=== PATIENT | male | born 1985 | race Caucasian/White ===

== ENCOUNTER 2018-03-30 08:09 | Day surgery (SDC) | payer OTHER ==
[2018-03-30] MEDS ORDERED: BUPIVACA 0.5%/EPI 0.0005%/PF 30 ML VIAL ONE (08:20)
[2018-03-30] MEDS: Ringers Lactate 1,000 ML IV ONE ×2 (08:53→11:03)
[2018-03-30] MEDS ORDERED: PROPOFOL 200 MG/20 ML VIAL IV ONE (10:30)
[2018-03-30] MEDS ORDERED: MIDAZOLAM HCL 2 MG/2 ML INJ ONE (10:30)
[2018-03-30] MEDS ORDERED: FENTANYL CITR 100 MCG/2 ML ONE (10:30)
[2018-03-30] MEDS ORDERED: DEXAMETHASONE 10 MG/ML VIAL ONE (10:31)
[2018-03-30] MEDS ORDERED: ROCURONIUM 50 MG/5 ML VIAL IV ONE (10:31)
[2018-03-30] MEDS ORDERED: LIDOCAINE 2% MPF 5 ML VIAL ONE (10:31)
[2018-03-30] MEDS ORDERED: EPINEPHRINE/PF 1 MG/ML AMP ONE (10:41)
[2018-03-30] MEDS ORDERED: GLYCOPYRROLATE 0.2 MG/ML SYR ONE (11:51)
[2018-03-30] MEDS ORDERED: NEOSTIGMINE 1 MG/ML -5 ML SYRINGE ONE (11:57)
[2018-03-30] MEDS ORDERED: MORPHINE 4 MG/ML SYR ONE (12:10)
--- NOTE | 2018-03-30 12:58 | P.BOP ---
Preoperative diagnosis: EDITA, tonsillary hypertrophy Postoperative diagnosis: same Primary procedure: EUA. 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
--- NOTE | 2018-03-30 23:15 | OP ---
Date of Procedure: 03/30/2018 Surgeon: Vivian Morrow MD Preoperative Diagnoses: Obstructive sleep apnea, tonsillar hypertrophy. Postoperative Diagnoses: Obstructive sleep apnea, tonsillar hypertrophy. Procedures: Planned tonsillectomy - aborted; exam under anesthesia. Indication For Surgery: Qamar is a 33-year-old with confirmed obstructive sleep apnea and very large tonsils. The risks, benefits, and alternatives to surgery were discussed with the patient who agreed to proceed. Description Of Procedure: The patient was brought to the operating room. He was placed under general anesthesia via oral endotracheal tube. It was noted that he was difficult intubation with insufficient exposure with a standard laryngoscope. He was successfully intubated after multiple attempts with a GlideScope. After obtaining adequate anesthesia, the head of bed was turned, a shoulder roll was placed, and a head drape was applied. The McIvor mouth gag was placed in order to expose the oropharynx. Exposure was very limited, even under anesthesia and with paralytic. The patient's maximal incisal opening was approximately 3 cm. His tongue was very large and the oropharynx was quite narrow in both fxhsrz-ac-klslxzh as well as pmyqsmst-ol-uhgkdaygg aspects. Due to the size of the tongue and limited mouth opening, exposure & visualization for access to the inferior pole of the tonsil was very limited. Due to these findings as well as the patient's recent acceptance and very good compliance with CPAP treatment, careful consideration was made regarding the risks and benefits of surgery presuming successful tonsillectomy without complications. The patient is still very likely to require CPAP therapy due to the size of the tongue, the narrowness of the oropharynx, neck circumference of 18 inches, and morbid obesity with weight greater than 300 pounds. In considering a worse case scenario such as post-tonsillectomy hemorrhage with difficult intubation, I felt overall, in light of intraoperative findings, that the risks of the procedure outweighed the benefit and opted to abort the procedure. Thus, no tonsillectomy incisions were made. The mouth gag was then removed and the patient was returned to care of anesthesia for awakening, extubation in the operating room, which proceeded without difficulty. There is no intention in the short-term to return to the operating room. Reconsideration may be made if the patient has significant weight loss with approaching a near-normal body mass index, but careful consideration would need to be made in light of the size of the patient's tongue and narrowness of the oropharynx overall. ASHLEE/BORIS Voice ID: [id number] Report ID: [id number] MTDD
== END 2018-03-30 13:35 | disposition home or self-care (01) ==
LOC: OR 08:09
PROVIDERS: ATTEND Otolaryngology
PROC: 0CTPXZZ Resection of Tonsils, External Approach (ICD-10-PCS; principal; 2018-03-30 10:30)
DX: J35.1 Hypertrophy of tonsils (principal); G47.33 Obstructive sleep apnea (adult) (pediatric); Z53.09 Procedure and treatment not carried out because of other contraindication; R06.83 Snoring; I10 Essential (primary) hypertension; F17.200 Nicotine dependence, unspecified, uncomplicated; Z83.3 Family history of diabetes mellitus; Z82.49 Family history of ischemic heart disease and other diseases of the circulatory system
CPT/HCPCS: J0171; J1100; J2250; J2710; J3010

== ENCOUNTER 2021-02-22 13:56 | Emergency (ER) | payer SELFPAY ==
[2021-02-22 15:21] LABS: Absolute Lymphocytes (CBC) 2.2 K/uL (0.7-4.9); Basophils % 0.9 % (0-1.3); Hematocrit 46.4 % (39.6-49.0); RBC Red Blood Cell Count 5.04 M/uL (4.33-5.43)
[2021-02-22 15:42] LABS: BUN Blood Urea Nitrogen 20 mg/dL (7-18); Bicarbonate 28 mmol/L (21-32); Glucose Level 179 mg/dL (74-106); Sodium Level 140 mmol/L (136-145); Troponin (Emerg Dept Use Only) < 0.02 ng/mL (0.0-0.045)
[2021-02-22 15:43] LABS: Potassium 4.1 mmol/L (3.5-5.1)
--- NOTE | 2021-02-22 17:33 | ER ---
Nurse's Notes [facility] Name: Qamar Weiner Age: 35 yrs Sex: Male : 1985 Arrival Date: 02/22/2021 Time: 13:58 Bed 11 Private MD: Diagnosis: Chest pain, unspecified;Hypertension Presentation: 02/22 14:41 Chief complaint: Patient states: Pt stated, " I was sitting eating lunch and all the kg sudden I had chest pain and cold sweats and felt like my heart was fluttering. I went in and took my B/P it was 168/112 and then tried again later it was 160/111." Pt stated I'm known to have high BP but I dont have insurance to see a DR. Coronavirus screen: Client denies travel out of the [place] in the last 14 days. At this time, unable to obtain information related to travel outside the [place] At this time, the client does not indicate any symptoms associated with coronavirus-19. Ebola Screen: Patient negative for fever greater than or equal to 101.5 degrees Fahrenheit, and additional compatible Ebola Virus Disease symptoms Patient denies exposure to infectious person. Patient denies travel to an Ebola-affected area in the 21 days before illness onset. Initial Sepsis Screen: Does the patient meet any 2 criteria? No. Patient's initial sepsis screen is negative. Does the patient have a suspected source of infection? No. Patient's initial sepsis screen is negative. Risk Assessment: Do you want to hurt yourself or someone else? Patient reports no desire to harm self or others. Onset of symptoms was February 22, 2021 at 12:30. 14:41 Method Of Arrival: Ambulatory kg 14:41 Acuity: STACY 3 kg Triage Assessment: 14:44 General: Appears in no apparent distress. Behavior is calm, cooperative, appropriate kg for age, quiet. Pain: Denies pain. Cardiovascular: Reports lightheadedness. Historical: - Allergies: 14:44 No Known Allergies; kg - Home Meds: 14:44 None [Active]; kg - PMHx: 14:44 Hypertensive disorder; Heart murmur; kg - PSHx: 14:44 None; kg - Immunization history:: Adult Immunizations not up to date, Client reports having NOT received the Covid vaccine. - Social history:: Smoking status: Patient reports the use of cigarette tobacco products, smokes one-half pack cigarettes per day, Patient uses alcohol, occasionally. - Family history:: not pertinent. - Hospitalizations: : No recent hospitalization is reported. Screenin:47 Abuse screen: Denies threats or abuse. Denies injuries from another. Nutritional kg screening: No deficits noted. Tuberculosis screening: No symptoms or risk factors identified. Fall Risk None identified. Assessment: 16:25 General: Appears in no apparent distress. comfortable, Behavior is calm, cooperative. ss Pain: Denies pain. Neuro: Level of Consciousness is awake, alert, obeys commands, Oriented to person, place, time, situation. Respiratory: Airway is patent Respiratory effort is even, unlabored, Respiratory pattern is regular, symmetrical. GI: No signs and/or symptoms were reported involving the gastrointestinal system. Patient currently denies diarrhea, nausea, vomiting. EENT: Oral mucosa is moist. Derm: Skin is intact, is healthy with good turgor, Skin is dry, Skin is pink, warm \\T\\ dry. normal. 16:34 Reassessment: awaiting repeat troponin results. ss Vital Signs: 14:44 BP 152 / 99; Pulse 112; Resp 20; Temp 98.9(O); Pulse Ox 98% on R/A; Weight 154.22 kg kg (R); Height 6 ft. 0 in. (182.88 cm) (R); Pain 0/10; 16:35 BP 152 / 103; Pulse 102; Resp 18; Temp 98.4(O); Pulse Ox 97% on R/A; mh5 14:44 Body Mass Index 46.11 (154.22 kg, 182.88 cm) kg ED Course: 13:58 Patient arrived in ED. mr 14:44 Triage completed. kg 14:44 Arm band placed on. kg 14:47 Patient has correct armband on for positive identification. kg 14:50 Inserted saline lock: 20 gauge in left antecubital area, using aseptic technique. kg Patient maintains SpO2 saturation greater than 95% on room air. 14:53 Joseph Cohen MD is Attending Physician. rn 15:18 XRAY Chest Pa And Lat (2 Views) In Process Unspecified. EDMS 16:25 Afia Andrew, KAL is Primary Nurse. 16:31 Troponin (Emerg Dept Use Only) Sent. mh5 16:31 Troponin (emerg Dept Use Only) Sent. 5 16:31 Repeat lab(s) drawn. by az, sent to lab. 5 16:37 Basic Metabolic Panel Sent. 5 16:37 CBC with Diff Sent. [facility] 17:33 Annetta Simpson MD is Referral Physician. rn Administered Medications: No medications were administered Outcome: 17:33 Discharge ordered by MD. rn 17:54 Patient left the ED. Signatures: Dispatcher [employer] EDELWA Vita Cruz Roman, MD MD rn Smirch, Shelby, RN RN ss Baxter, Heather, RN RN Susan Hannon [facility] Isela Whipple RN RN kg
--- NOTE | 2021-02-22 17:33 | EDPHYS ---
Physician Documentation [facility] Name: Qamar Weiner Age: 35 yrs Sex: Male : 1985 Arrival Date: 02/22/2021 Time: 13:58 Bed 11 Private MD: ED Physician Joseph Cohen HPI: 02/22 15:01 This 35 yrs old Male presents to ER via Ambulatory with complaints of Chest rn Pain, High Blood Pressure. 15:01 The patient or guardian reports chest pain that is located primarily in the anterior rn chest wall, left. The pain does not radiate. Associated signs and symptoms: Pertinent positives: None. Pertinent negatives: abdominal pain, cough, headache, lower extremity swelling, shortness of breath, syncope, vomiting. The chest pain is described as pulsing. Duration: The patient or guardian reports a single episode, that lasted 30 second(s). Modifying factors: The symptoms are alleviated by nothing. the symptoms are aggravated by nothing. Severity of pain: At its worst the pain was mild in the emergency department the pain has improved. The patient has not experienced similar symptoms in the past. The patient has not recently seen a physician. Patient reports was eating lunch, felt 3 pulses in his left chest, denies pain, reports lasted a few seconds only. Went back to work and felt a little off, so checked blood pressure, which was elevated 160s over 110s. Currently asymptomatic. Patient reports mother had DE in her 30s. Also reports is an active smoker.. Historical: - Allergies: 14:44 No Known Allergies; kg - Home Meds: 14:44 None [Active]; kg - PMHx: 14:44 Hypertensive disorder; Heart murmur; kg - PSHx: 14:44 None; kg - Immunization history:: Adult Immunizations not up to date, Client reports having NOT received the Covid vaccine. - Social history:: Smoking status: Patient reports the use of cigarette tobacco products, smokes one-half pack cigarettes per day, Patient uses alcohol, occasionally. - Family history:: not pertinent. - Hospitalizations: : No recent hospitalization is reported. ROS: 15:01 Constitutional: Negative for fever, chills, and weight loss, Eyes: Negative for injury, rn pain, redness, and discharge, Neck: Negative for injury, pain, and swelling, Cardiovascular: Negative for edema Respiratory: Negative for shortness of breath, cough, wheezing, and pleuritic chest pain, Abdomen/GI: Negative for abdominal pain, nausea, vomiting, diarrhea, and constipation, Back: Negative for injury and pain, : Negative for injury, bleeding, discharge, and swelling, MS/Extremity: Negative for injury and deformity, Skin: Negative for injury, rash, and discoloration, Neuro: Negative for headache, weakness, numbness, tingling, and seizure. 15:01 All other systems are negative. Exam: 15:01 Constitutional: Overweight male, no acute distress Head/Face: Normocephalic, rn atraumatic. Eyes: Periorbital areas with no swelling, redness, or edema. Cardiovascular: Tachycardic, regular rhythm. No pulse deficits. Respiratory: No increased work of breathing, no retractions or nasal flaring. Abdomen/GI: Soft, non-tender Skin: Warm, dry MS/ Extremity: Pulses equal, no cyanosis. Neuro: Awake and alert, GCS 15 15:12 ECG was reviewed by the Attending Physician. rn Vital Signs: 14:44 BP 152 / 99; Pulse 112; Resp 20; Temp 98.9(O); Pulse Ox 98% on R/A; Weight 154.22 kg kg (R); Height 6 ft. 0 in. (182.88 cm) (R); Pain 0/10; 16:35 BP 152 / 103; Pulse 102; Resp 18; Temp 98.4(O); Pulse Ox 97% on R/A; mh5 14:44 Body Mass Index 46.11 (154.22 kg, 182.88 cm) kg MDM: 14:53 Patient medically screened. rn 16:11 Differential diagnosis: acute myocardial infarction, acute pericarditis, coronary rn artery disease chest wall pain, costochondritis, gastroesophageal reflux disease (GERD), pleurisy, pneumothorax, pulmonary embolus, stable angina. Data reviewed: vital signs, nurses notes, lab test result(s), EKG, radiologic studies, plain films, and as a result, I will discharge patient. Data interpreted: Pulse oximetry: on room air is 98 %. Interpretation: normal. 16:21 ED course: Discussed case with patient, troponin negative, D-dimer negative, chest rn x-ray negative, no ischemia on ECG. Patient does have some risk factors, so discussed admission versus repeat troponin and outpatient follow-up. Patient requests he not be admitted and wants repeat troponin. Repeat troponin being drawn now. If normal will DC home.. 17:31 Test interpretation: by ED physician or midlevel provider: ECG, plain radiologic rn studies, Chest x-ray without acute findings, negative for pneumothorax. Counseling: I had a detailed discussion with the patient and/or guardian regarding: the historical points, exam findings, and any diagnostic results supporting the discharge/admit diagnosis, lab results, radiology results, the need for outpatient follow up, to return to the emergency department if symptoms worsen or persist or if there are any questions or concerns that arise at home. Counseling: I had a detailed discussion with the patient and/or guardian regarding: smoking cessation. Response to treatment: the patient's symptoms have resolved after treatment, the patient's condition has returned to base line, the patient is now symptom free, and as a result, I will discharge patient. Special discussion: Based on the patient's history, exam, and Dx evaluation, there is no indication for emergent intervention or inpatient Tx. It is understood by the patient/guardian that if the Sx's persist or worsen they need to return immediately for re-evaluation. I discussed with the patient/guardian in detail that at this point there is no indication for admission to the hospital. It is understood, however, that if the symptoms persist or worsen the patient needs to return immediately for re-evaluation. ED course: Repeat troponin negative. Patient still wants to go home as opposed to admission. Will refill his hypertension medication as he has been out of it, which could have precipitated today's symptoms given elevated blood pressure. Chest pain only lasted seconds and felt more like pulses per patient and not true pain. Will DC home per his wishes with cardiology follow-up and return precautions.. 02/22 14:59 Order name: CBC with Diff rn 02/22 14:59 Order name: Basic Metabolic Panel rn 02/22 14:59 Order name: Troponin (emerg Dept Use Only); Complete Time: 16:02 rn 02/22 14:59 Order name: D-Dimer; Complete Time: 16:02 rn 02/22 15:00 Order name: CBC with Automated Diff; Complete Time: 16:02 EDIL 02/22 15:00 Order name: Basic Metabolic Panel; Complete Time: 16:02 EDIL 02/22 14:59 Order name: IV Start; Complete Time: 16:34 rn 02/22 14:59 Order name: EKG; Complete Time: 15:00 rn 02/22 14:59 Order name: EKG - Nurse/Tech; Complete Time: 16:34 rn 02/22 14:59 Order name: XRAY Chest Pa And Lat (2 Views) rn 02/22 14:59 Order name: O2 Sat Monitoring; Complete Time: 16:34 rn 02/22 14:59 Order name: Cardiac monitoring; Complete Time: 17:37 rn 02/22 16:21 Order name: Troponin (emerg Dept Use Only) rn 02/22 16:21 Order name: Troponin (Emerg Dept Use Only); Complete Time: 17:31 EDMS EC:12 Rate is 112 beats/min. Rhythm is regular. Left axis deviation noted. QRS is positive in rn lead I and negative in lead aVF. VA interval is normal. QRS interval is normal. QT interval is normal. No Q waves. T waves are Normal. No ST changes noted. Clinical impression: Sinus tachycardia. Interpreted by me. Reviewed by me. 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
[2021-02-22 18:14] VITALS: BP 152/103; TEMP 98.4; O2SAT 97
--- NOTE | 2021-02-23 07:38 | EKG ---
Test Date: 2021-02-22 Test Time: 14:50:58 Copier Repair Technician: ASHLYN MEASUREMENT RESULTS: Intervals: Rate: 112 AZ: 150 QRSD: 100 QT: 342 QTc: 466 [place]: P: 43 AZ: 150 QRS: -76 T: 89 INTERPRETIVE STATEMENTS: Sinus tachycardia Incomplete right bundle branch block Left anterior fascicular block Left ventricular hypertrophy with repolarization abnormality Abnormal ECG No previous ECG available for comparison Electronically Signed On 02-23-21 07:36:22 CDT by Gino Domínguez
--- NOTE | 2021-02-23 09:46 | RAD REPORT ---
EXAM DESCRIPTION: RAD - Chest Pa And Lat (2 Views) - 02/22/2021 10:38 pm CLINICAL HISTORY: CHEST PAIN Prolonged technical malfunction delayed the final written report. COMPARISON: None TECHNIQUE: Frontal and lateral views of the chest were obtained. FINDINGS: The lungs are clear. Heart size is normal and central vasculature is within normal limit s. No pleural effusion or pneumothorax seen. No acute bony finding noted. No aortic abnormality. IMPRESSION: No acute cardiopulmonary process.
== END 2021-02-22 17:54 | disposition home or self-care (01) ==
LOC: ER 13:56
DX: I10 Essential (primary) hypertension (principal); F17.210 Nicotine dependence, cigarettes, uncomplicated
CPT/HCPCS: 36415; 71046; 80048; 84484; 85025; 85379; 93005; 99284

== ENCOUNTER 2021-04-06 04:38 | Inpatient (IN) | payer SELFPAY ==
[2021-04-06 05:20] LABS: Absolute Lymphocytes (CBC) 2.6 K/uL (0.7-4.9); Lymphocytes % 28.6 % (15.3-44.8); MPV 7.3 fL (7.6-11.3); RBC Red Blood Cell Count 4.83 M/uL (4.33-5.43)
[2021-04-06 05:26] LABS: Protime INR 0.97
[2021-04-06 05:40] LABS: ALT/SGPT 62 U/L (12-78); AST/SGOT 29 U/L (15-37); Albumin 3.7 g/dL (3.4-5.0); Alkaline Phosphatase 79 U/L (45-117); BUN Blood Urea Nitrogen 19 mg/dL (7-18); Bicarbonate 27 mmol/L (21-32); Bilirubin Direct 0.1 mg/dL (0-0.2); Bilirubin Total 0.4 mg/dL (0.2-1.0); Glucose Level 133 mg/dL (74-106); Magnesium 2.1 mg/dL (1.8-2.4); NT PRO-BNP 14 pg/mL (<125); Potassium 3.9 mmol/L (3.5-5.1); Protein, Total 7.3 g/dL (6.4-8.2); Sodium Level 139 mmol/L (136-145); Troponin (Emerg Dept Use Only) < 0.02 ng/mL (0.0-0.045)
--- NOTE | 2021-04-06 06:08 | ER ---
Nurse's Notes [facility] Name: Qamar Weiner Age: 36 yrs Sex: Male : 1985 Arrival Date: 04/06/2021 Time: 04:40 Bed 24 Private MD: Diagnosis: Chest pain, unspecified;Hyperlipidemia, unspecified;Essential (primary) hypertension;Obesity, unspecified Presentation: 04/06 04:57 Chief complaint: Patient states: Pt states he was woken with sharp mid-sternal CP non wg radiating at 0200 this AM. Pt states he also has a headache in the back of head. Pt states he has a hx of HTN and is taking Lisinopril. Pt states he has had chest discomfort for the past 2-3 days but thought it was indigestion. The pain this morning was much worse. Pt denies SOB at rest but states slightly SOB on exertion. Pt denies Abd pain, N/V/D. Coronavirus screen: Vaccine status: Patient reports being unvaccinated. Client denies travel out of the [place] in the last 14 days. At this time, the client does not indicate any symptoms associated with coronavirus-19. Ebola Screen: Patient negative for fever greater than or equal to 101.5 degrees Fahrenheit, and additional compatible Ebola Virus Disease symptoms Patient denies exposure to infectious person. Patient denies travel to an Ebola-affected area in the 21 days before illness onset. No symptoms or risks identified at this time. Initial Sepsis Screen: Does the patient meet any 2 criteria? No. Patient's initial sepsis screen is negative. Does the patient have a suspected source of infection? No. Patient's initial sepsis screen is negative. Risk Assessment: Do you want to hurt yourself or someone else? Patient reports no desire to harm self or others. Onset of symptoms was April 06, 2021 at 02:00. 04:57 Method Of Arrival: Ambulatory wg 04:57 Acuity: STACY 3 wg Triage Assessment: 05:01 General: Appears uncomfortable, obese, well groomed, Behavior is calm, cooperative, wg appropriate for age. Pain: Complains of pain in Back of head, Mid Sternal Pain does not radiate. Pain currently is 10 out of 10 on a pain scale. Quality of pain is described as sharp. Cardiovascular: Reports chest pain, Denies diaphoresis, lightheadedness, nausea, palpitations, syncope, vomiting, Rhythm is sinus rhythm. Historical: - Allergies: 05:01 No Known Allergies; - Home Meds: 05:01 Lisinopril Oral [Active]; - PMHx: 05:01 Hypertensive disorder; wg - Immunization history:: Adult Immunizations up to date. - Social history:: Smoking status: Patient/guardian denies using tobacco. - Family history:: pertinent for heart disease, hypertension. Screenin:01 Abuse screen: Denies threats or abuse. Denies injuries from another. Nutritional sj1 screening: No deficits noted. Tuberculosis screening: No symptoms or risk factors identified. Fall Risk None identified. Assessment: 05:01 General: Appears in no apparent distress. Behavior is calm, cooperative, appropriate sj1 for age. Pain: Complains of pain in left chest Pain does not radiate. Pain currently is 8 out of 10 on a pain scale. Quality of pain is described as squeezing, Pain began 2 hours ago. Is continuous, Alleviated by nothing. Neuro: Reports dizziness. Cardiovascular: Reports chest pain, lightheadedness. Respiratory: Reports shortness of breath when CP worsens. GI: No deficits noted. : No deficits noted. EENT: No deficits noted. Derm: No deficits noted. Musculoskeletal: No deficits noted. Vital Signs: 04:57 BP 143 / 84; Pulse 90; Resp 17; Temp 97.6; Pulse Ox 98% on R/A; Weight 154.22 kg; wg Height 6 ft. 0 in. (182.88 cm); Pain 10/10; 05:00 BP 135 / 81; Pulse 91; Resp 20; Pulse Ox 98% on R/A; wr 06:00 BP 142 / 88; Pulse 84; Resp 20; Pulse Ox 98% on R/A; wr 07:00 BP 141 / 95; Pulse 77; Resp 20; Pulse Ox 98% ; es2 08:00 BP 123 / 63; Pulse 73; Resp 21; Temp 98.6(O); Pulse Ox 98% on R/A; es2 09:00 BP 133 / 61; Pulse 63; Resp 23; Pulse Ox 98% on R/A; es2 04:57 Body Mass Index 46.11 (154.22 kg, 182.88 cm) Vitals: 05:01 Cardiac Rhythm Assessment Regular Sinus rhythm. sj1 Perez Coma Score: 05:01 Eye Response: spontaneous(4). Verbal Response: oriented(5). Motor Response: obeys sj1 commands(6). Total: 15. ED Course: 04:40 Patient arrived in ED. 05:01 Triage completed. wg 05:01 XRAY Chest (1 view) Sent. sj1 05:01 No provider procedures requiring assistance completed. Inserted saline lock: 18 gauge sj1 in right antecubital area, using aseptic technique. Blood collected. Patient maintains SpO2 saturation greater than 95% on room air. 05:01 Arm band placed on right wrist. EKG completed in triage. Results shown to MD. wg 05:01 Patient has correct armband on for positive identification. Bed in low position. Call sj1 light in reach. Side rails up X 1. bus driver/monitor on. Pulse ox on. NIBP on. Door closed. Noise minimized. 05:05 XRAY Chest (1 view) In Process Unspecified. EDMS 05:12 Guanako Alvarado MD is Attending Physician. krysta 05:51 Megan Nunez is Primary Nurse. wr 06:06 Lilia Agosto MD is Hospitalizing Provider. krysta 06:18 CT Head Brain wo Cont In Process Unspecified. EDMS 08:32 Primary Nurse role handed off by Megan Nunez es2 08:32 Nubia Nogueira, KAL is Primary Nurse. es2 09:11 Troponin I Sent. es2 09:11 Lipid Profile Sent. es2 09:11 Lipid Profile Sent. es2 Administered Medications: 05:55 Drug: NS 0.9% 1000 ml Route: IV; Rate: 1 bolus; Site: right antecubital; wr 07:09 Follow up: Response: No adverse reaction; IV Status: Completed infusion es2 05:55 Drug: Tylenol 1000 mg Route: PO; wr 07:09 Follow up: Response: No adverse reaction es2 05:55 Drug: Ketorolac 30 mg Route: IVP; Site: right antecubital; wr 07:08 Follow up: Response: No adverse reaction es2 05:55 Drug: Aspirin Chewable Tablet 162 mg Route: PO; wr 07:09 Follow up: Response: No adverse reaction es2 06:00 Drug: Pepcid (famotidine) 20 mg Route: IVP; Site: right antecubital; wr 07:07 Follow up: Response: No adverse reaction es2 06:00 Drug: Lopressor (metoprolol TARTRATE)) 25 mg Route: PO; 07:07 Follow up: Response: No adverse reaction es2 06:55 Drug: Lisinopril 10 mg Route: PO; wr 07:08 Follow up: Response: No adverse reaction es2 11:53 Drug: Lovenox (enoxaparin) 100 mg Route: Sub-Q; Site: right lower abdomen; es2 11:53 Follow up: Response: No adverse reaction es2 Outcome: 06:07 Decision to Hospitalize by Provider. krysta 17:16 Patient left the ED. es2 Signatures: Dispatcher [employer] EDMS Guanako Alvarado MD MD cha Marsh, Wendy wm Gamba, Liam, RN wg Robinson, Willena wr Johnson, Sade, RN RN sj1 Nubia Nogueira RN RN es2 Corrections: (The following items were deleted from the chart) 06:27 06:22 CORONAVIRUS+MR.LAB.BRZ drawn and sent. EDMS 06:46 06:27 BP 142 / 88; Pulse 84bpm; Resp 20bpm; Pulse Ox 98% RA; [facility] 08:43 08:00 BP 123 / 63; Pulse 73bpm; Resp 21bpm; Pulse Ox 98% RA; es2 es2
--- NOTE | 2021-04-06 06:08 | EDPHYS ---
Physician Documentation [facility] Name: Qamar Weiner Age: 36 yrs Sex: Male : 1985 Arrival Date: 04/06/2021 Time: 04:40 Bed 24 Private MD: ED Physician Guanako Alvarado HPI: 04/06 05:53 This 36 yrs old Male presents to ER via Ambulatory with complaints of Chest krysta Pain > 30 y/o, Headache. 05:53 The patient or guardian reports chest pain that is located primarily in the anterior krysta chest wall, bilaterally. The pain does not radiate. Associated signs and symptoms: Pertinent positives: nausea. The chest pain is described as causing indigestion, a pressure. Duration: The patient or guardian reports multiple episodes, that wax and wane. Modifying factors: The symptoms are alleviated by nothing. the symptoms are aggravated by nothing. Severity of pain: At its worst the pain was moderate in the emergency department the pain has improved moderately. The patient has experienced similar episodes in the past, a few times. Historical: - Allergies: 05:01 No Known Allergies; wg - Home Meds: 05:01 Lisinopril Oral [Active]; wg - PMHx: 05:01 Hypertensive disorder; wg - Immunization history:: Adult Immunizations up to date. - Social history:: Smoking status: Patient/guardian denies using tobacco. - Family history:: pertinent for heart disease, hypertension. ROS: 05:53 Constitutional: Negative for fever, chills, and weight loss, Eyes: Negative for injury, krysta pain, redness, and discharge, ENT: Negative for injury, pain, and discharge, Neck: Negative for injury, pain, and swelling, Respiratory: Negative for shortness of breath, cough, wheezing, and pleuritic chest pain, Abdomen/GI: Negative for abdominal pain, nausea, vomiting, diarrhea, and constipation, Back: Negative for injury and pain, : Negative for injury, bleeding, discharge, and swelling, MS/Extremity: Negative for injury and deformity, Skin: Negative for injury, rash, and discoloration, Neuro: Negative for headache, weakness, numbness, tingling, and seizure, Psych: Negative for depression, anxiety, suicide ideation, homicidal ideation, and hallucinations, Endocrine: Negative for neck swelling, polydipsia, polyuria, polyphagia, and marked weight changes, Hematologic/Lymphatic: Negative for swollen nodes, abnormal bleeding, and unusual bruising. 05:53 Cardiovascular: Positive for chest pain, of the chest. Exam: 05:53 Constitutional: This is a well developed, well nourished patient who is awake, alert, krysta and in no acute distress. Head/Face: Normocephalic, atraumatic. Eyes: Pupils equal round and reactive to light, extra-ocular motions intact. Lids and lashes normal. Conjunctiva and sclera are non-icteric and not injected. Cornea within normal limits. Periorbital areas with no swelling, redness, or edema. ENT: Nares patent. No nasal discharge, no septal abnormalities noted. Tympanic membranes are normal and external auditory canals are clear. Oropharynx with no redness, swelling, or masses, exudates, or evidence of obstruction, uvula midline. Mucous membranes moist. Neck: Trachea midline, no thyromegaly or masses palpated, and no cervical lymphadenopathy. Supple, full range of motion without nuchal rigidity, or vertebral point tenderness. No Meningismus. Chest/axilla: Normal chest wall appearance and motion. Nontender with no deformity. No lesions are appreciated. Cardiovascular: Regular rate and rhythm with a normal S1 and S2. No gallops, murmurs, or rubs. Normal PMI, no JVD. No pulse deficits. Respiratory: Lungs have equal breath sounds bilaterally, clear to auscultation and percussion. No rales, rhonchi or wheezes noted. No increased work of breathing, no retractions or nasal flaring. Abdomen/GI: Soft, non-tender, with normal bowel sounds. No distension or tympany. No guarding or rebound. No evidence of tenderness throughout. Back: No spinal tenderness. No costovertebral tenderness. Full range of motion. Male : Normal genitalia with no discharge or lesions. Skin: Warm, dry with normal turgor. Normal color with no rashes, no lesions, and no evidence of cellulitis. MS/ Extremity: Pulses equal, no cyanosis. Neurovascular intact. Full, normal range of motion. Neuro: Awake and alert, GCS 15, oriented to person, place, time, and situation. Cranial nerves II-XII grossly intact. Motor strength 5/5 in all extremities. Sensory grossly intact. Cerebellar exam normal. Normal gait. Psych: Awake, alert, with orientation to person, place and time. Behavior, mood, and affect are within normal limits. 05:53 Musculoskeletal/extremity: DVT Exam: No signs of deep vein thrombosis. no pain, no swelling, no tenderness, negative Homans' sign noted on exam, no appreciated bluish discoloration, no erythema, no increased warmth. 06:08 ECG was reviewed by the Attending Physician. [facility] Vital Signs: 04:57 BP 143 / 84; Pulse 90; Resp 17; Temp 97.6; Pulse Ox 98% on R/A; Weight 154.22 kg; wg Height 6 ft. 0 in. (182.88 cm); Pain 10/10; 05:00 BP 135 / 81; Pulse 91; Resp 20; Pulse Ox 98% on R/A; wr 06:00 BP 142 / 88; Pulse 84; Resp 20; Pulse Ox 98% on R/A; wr 07:00 BP 141 / 95; Pulse 77; Resp 20; Pulse Ox 98% ; es2 08:00 BP 123 / 63; Pulse 73; Resp 21; Temp 98.6(O); Pulse Ox 98% on R/A; es2 09:00 BP 133 / 61; Pulse 63; Resp 23; Pulse Ox 98% on R/A; es2 04:57 Body Mass Index 46.11 (154.22 kg, 182.88 cm) [place] Coma Score: 05:01 Eye Response: spontaneous(4). Verbal Response: oriented(5). Motor Response: obeys sj1 commands(6). Total: 15. MDM: 05:12 Patient medically screened. [facility] 05:53 Differential diagnosis: abnormal EKG, acute myocardial infarction, coronary artery krysta disease chest wall pain, Cholelithiasis gastroesophageal reflux disease (GERD), hiatal hernia, pancreatitis, peptic ulcer disease. HEART Score: History: Slightly Suspicious (0), ECG: Non specific repolarization disturbance / LBTB / PM (1), Age: < or = 45 years (0), Risk Factors: > or = 3 Risk factors for atherosclerotic disease (2), [Hypercholesterolemia] [Hypertension] [Active Smoker] [+ Family HX] [Obesity] Troponin: < or = 1 x Normal Limit (0). The patient's deep vein thrombosis risk score was calculated as follows: Total Score: 0. This patient was found to be at low risk for a deep vein thrombosis by using the Well's assessment criteria. The patient's pulmonary embolism risk score was calculated as follows: Total Score: 0-2 points. This patient was found to be at low risk for a pulmonary embolism by using the Well's assessment criteria. DEVI Risk Score: 1 - Three or more CAD risk factors, TOTAL SCORE = 1. Data reviewed: vital signs, nurses notes, lab test result(s), EKG, radiologic studies, plain films. Data interpreted: fashion journalist: rate is 90 beats/min, Pulse oximetry: on room air is 98 %. Test interpretation: by ED physician or midlevel provider: plain radiologic studies. Counseling: I had a detailed discussion with the patient and/or guardian regarding: the historical points, exam findings, and any diagnostic results supporting the discharge/admit diagnosis, the presence of at least one elevated blood pressure reading (>120/80) during this emergency department visit, lab results, radiology results, the need for further work-up and treatment in the hospital. 04/06 04:51 Order name: Basic Metabolic Panel; Complete Time: 05:50 em 04/06 04:51 Order name: CBC with Diff; Complete Time: 05:50 em 04/06 04:51 Order name: LFT's; Complete Time: 05:50 em 04/06 04:51 Order name: Magnesium; Complete Time: 05:50 em 04/06 04:51 Order name: NT PRO-BNP; Complete Time: 05:50 em 04/06 04:51 Order name: PT-INR; Complete Time: 05:50 em 04/06 04:51 Order name: Troponin (emerg Dept Use Only); Complete Time: 05:50 em 04/06 04:51 Order name: XRAY Chest (1 view) em 04/06 07:18 Order name: SARS-COV-2 RT PCR EDMS 04/06 08:49 Order name: Troponin I EDMS 04/06 08:49 Order name: Lipid Profile EDMS 04/06 08:49 Order name: Lipid Profile EDMS 04/06 09:03 Order name: Urine Dipstick-Ancillary EDMS 04/06 04:51 Order name: EKG; Complete Time: 04:52 em 04/06 04:51 Order name: Cardiac monitoring; Complete Time: 05:01 em 04/06 04:51 Order name: EKG - Nurse/Tech; Complete Time: 05:01 em 04/06 04:51 Order name: IV Saline Lock; Complete Time: 05:01 em 04/06 04:51 Order name: Labs collected and sent; Complete Time: 05: em 04/06 04:51 Order name: O2 Per Protocol; Complete Time: 05:01 em 04/06 05:50 Order name: CT Head Brain wo Cont krysta 04/06 08:50 Order name: Echo with Doppler EDMS 04/06 04:51 Order name: O2 Sat Monitoring; Complete Time: 05: em 04/06 05:50 Order name: Urine Dipstick-Ancillary (obtain specimen); Complete Time: 09:03 krysta EC:08 Rate is 88 beats/min. Rhythm is regular. QRS [place] is Normal. CT interval is normal. QRS krysta interval is normal. QT interval is normal. No Q waves. T waves are Normal. No ST changes noted. Clinical impression: NSR w/ Non-specific ST/T Changes, LVH, and No evidence of ischemia. Interpreted by me. Reviewed by me. Administered Medications: 05:55 Drug: NS 0.9% 1000 ml Route: IV; Rate: 1 bolus; Site: right antecubital; 07: Follow up: Response: No adverse reaction; IV Status: Completed infusion es2 05:55 Drug: Tylenol 1000 mg Route: PO; 07: Follow up: Response: No adverse reaction es2 05:55 Drug: Ketorolac 30 mg Route: IVP; Site: right antecubital; wr 07:08 Follow up: Response: No adverse reaction es2 05:55 Drug: Aspirin Chewable Tablet 162 mg Route: PO; wr 07: Follow up: Response: No adverse reaction es2 06:00 Drug: Pepcid (famotidine) 20 mg Route: IVP; Site: right antecubital; wr 07: Follow up: Response: No adverse reaction es2 06:00 Drug: Lopressor (metoprolol TARTRATE)) 25 mg Route: PO; 07: Follow up: Response: No adverse reaction es2 06:55 Drug: Lisinopril 10 mg Route: PO; wr 07:08 Follow up: Response: No adverse reaction es2 11:53 Drug: Lovenox (enoxaparin) 100 mg Route: Sub-Q; Site: right lower abdomen; es2 11:53 Follow up: Response: No adverse reaction es2 Disposition Summary: 04/06/21 06:07 Hospitalization Ordered Hospitalization Status: Observation krysta Provider: Lilia Agosto cha Condition: Fair krysta Problem: new krysta Symptoms: have improved krysta Bed/Room Type: Standard krysta Location: Telemetry/MedSurg (observation)(04/06/21 15:54) bd Room Assignment: 215(04/06/21 15:54) bd Diagnosis - Chest pain, unspecified krysta - Hyperlipidemia, unspecified krysta - Essential (primary) hypertension krysta - Obesity, unspecified krysta Forms: - Medication Reconciliation Form krysta - SBAR form krysta Signatures: Dispatcher [employer] EDMS Araceli Sanders Corey, MD MD cha Munoz, Edgar, RN RN Afia De La Torre RN RN ss Gamba, Liam, RN wg Robinson, Willena wr Smith, Elizabeth, RN RN es2 Corrections: (The following items were deleted from the chart) 06:27 05:53 CORONAVIRUS+MR.LAB.BRZ ordered. EDMS EDMS 11:34 06:07 Telemetry/MedSurg (observation) krysta ss 11:34 06:07 krysta ss 15:54 11:34 [facility] ER HOLD ss bd 15:54 11:34 ERHOLD- ss bd
[2021-04-06] MEDS ORDERED: ACETAMINOPHEN 500 MG TAB ONE (06:20)
[2021-04-06] MEDS ORDERED: KETOROLAC 30 MG/ML INJ ONE (06:21)
[2021-04-06] MEDS ORDERED: ASPIRIN 81 MG CHEWABLE TABLET ONE (06:21)
[2021-04-06] MEDS ORDERED: NA CHLORIDE 0.9% 1,000 ML ONE (06:21)
[2021-04-06] MEDS ORDERED: FAMOTIDINE 20 MG/2 ML VIAL IV ONE (06:31)
[2021-04-06] MEDS ORDERED: METOPROLOL TAR 25 MG TAB ONE (06:31)
--- NOTE | 2021-04-06 07:13 | RAD REPORT ---
EXAM DESCRIPTION: RAD - Chest Single View - 04/06/2021 5:05 am CLINICAL HISTORY: CHEST PAIN COMPARISON: Chest Pa And Lat (2 Views) dated 02/22/2021 FINDINGS: Lines: None. Lungs: Very low lung volumes which limit evaluation. The patient's body habitus and poor penetration limits evaluation lung bases. Pleural: No significant pleural effusions or pneumothorax. Cardiac: The heart size is within normal limits. Bones: No acute fractures. Other: IMPRESSION: Limited due to body habitus. No definite acute process identified. If there is persistin g clinical concern, could consider a PA and lateral when the patient's condition permits.
[2021-04-06] MEDS ORDERED: lisinopriL 10 MG TAB ONE (07:22)
[2021-04-06] MEDS ORDERED: ACETAMINOPHEN 500 MG TAB PO PRN (08:46)
[2021-04-06] MEDS: ASPIRIN EC 81 MG TAB PO SCH (09:00)
[2021-04-06] MEDS ORDERED: METOPROLOL TAR 50 MG TAB PO SCH (09:00)
[2021-04-06 09:03] LABS: Urine Blood Negative (Negative); Urine Glucose Negative (Negative); Urine Protein Negative (Negative); Urine Specific Gravity 1.025 (1.005-1.030); Urine pH 6.5 (5.0-7.0)
[2021-04-06 09:43] LABS: HDL Cholesterol 37 mg/dL (40-60); LDL Cholesterol, Calculated 142 (<130); Troponin I < 0.02 ng/mL (0.0-0.045)
[2021-04-06] MEDS ORDERED: ASPIRIN EC 81 MG TAB PO ONE (11:23)
[2021-04-06] MEDS ORDERED: PNEUMOCOCCAL VACCINE 0.5 ML IMVAC ONE (12:00)
[2021-04-06] MEDS ORDERED: INFLUENZA VACCINE (for 6+ mo) 0.5 ML DOSE IMVAC ONE (12:00)
[2021-04-06] MEDS ORDERED: ENOXAPARIN 100 MG/ML SYR SQ ONE (12:16)
--- NOTE | 2021-04-06 12:49 | RAD REPORT ---
EXAM DESCRIPTION: CT - Head Brain Wo Cont - 04/06/2021 6:40 am CLINICAL HISTORY: The patient is 36 years old and is Male; HEADACHE TECHNIQUE: Axial computed tomography images of the head/brain without intravenous contrast. Sagitt al and coronal reformatted images were created and reviewed. This CT exam was performed using one o r more of the following dose reduction techniques: automated exposure control, adjustment of the mA and/or kV according to patient size, and/or use of iterative reconstruction technique. COMPARISON: No relevant prior studies available. FINDINGS: Brain: Unremarkable. No hemorrhage. No significant white matter disease. No edema. Ventricles: Unremarkable. No ventriculomegaly. Bones/joints: Unremarkable. No acute fracture. Soft tissues: Unremarkable. Sinuses: Unremarkable as visualized. Mastoid air cells: Unremarkable as visualized. No mastoid effusion. IMPRESSION: No acute intracranial abnormality. Electronically signed by: David Tracy MD 04/06/2021 6:34 AM CDT Due to temporary technical issues with the PACS/Fluency reporting system, reports are being signed by the in house radiologists without review as a courtesy to insure prompt reporting. The interpreting radiologist is fully responsible for the content of the report.
--- NOTE | 2021-04-06 18:07 | EKG ---
Test Date: 2021-04-06 Test Time: 04:58:03 Ems Director: EDELMIRA MEASUREMENT RESULTS: Intervals: Rate: 88 DC: 142 QRSD: 108 QT: 374 QTc: 452 [place]: P: 13 DC: 142 QRS: -62 T: 55 INTERPRETIVE STATEMENTS: Normal sinus rhythm Left anterior fascicular block Minimal voltage criteria for LVH, may be normal variant Abnormal ECG Compared to ECG 02/22/2021 14:50:58 Sinus tachycardia no longer present Incomplete right bundle-branch block no longer present Early repolarization no longer present Electronically Signed On 04-06-21 18:05:36 CDT by Gino Domínguez
[2021-04-06] MEDS ORDERED: MELATONIN 5 MG TABLET PO PRN (20:18)
[2021-04-07 04:32] VITALS: O2SAT 96
[2021-04-07 07:48] VITALS: BMI 45.8
[2021-04-07] MEDS: ASPIRIN EC 81 MG TAB PO SCH (07:56)
--- NOTE | 2021-04-07 08:14 | ECHO ---
HEIGHT: 6 ft 0 in WEIGHT: 338 lb 0 oz DATE OF STUDY: 04/06/[address]: Lilia Agosto MD 2-DIMENSIONAL: YES M.MODE: YES DOPPLER: YES COLOR FLOW: YES TDS: YES PORTABLE: NO DEFINITY: NO BUBBLE STUDY: NO DIAGNOSIS: CHEST PAIN RULE OUT ACS CARDIAC HISTORY: CATHERIZATION: NO SURGERY: NO PROSTHETIC VALVE: NO PACEMAKER: NO MEASUREMENTS (cm) DIASTOLIC (NORMALS) SYSTOLIC (NORMALS) IVSd 1.3 (0.6-1.2) LA Diam 3.2 (1.9-4.0) LVEF 58% LVIDd 4.7 (3.5-5.7) LVIDs 3.3 (2.0-3.5) %FS 30% LVPWd 1.4 (0.6-1.2) Ao Diam 2.6 (2.0-3.7) 2 DIMENSIONAL ASSESSMENT: RIGHT ATRIUM: NORMAL LEFT ATRIUM: NORMAL RIGHT VENTRICLE: NORMAL LEFT VENTRICLE: NORMAL TRICUSPID VALVE: NORMAL MITRAL VALVE: NORMAL PULMONIC VALVE: NORMAL AORTIC VALVE: NORMAL PERICARDIAL EFFUSION: NONE AORTIC ROOT: NORMAL LEFT VENTRICULAR WALL MOTION: NORMAL DOPPLER/COLOR FLOW: NORMAL COMMENTS: NORMAL LEFT VENTRICULAR EJECTION FRACTION. MILD LEFT VENTRICULAR HYPERTROPHY. NO EFFUSION. NO MITRAL VALVE PROLAPSE. TECHNOLOGIST: Yousuf MCBRIDE
[2021-04-07 08:58] VITALS: BP 136/78; TEMP 97.6
--- NOTE | 2021-04-19 04:00 | P.HP ---
Certification for Inpatient Patient admitted to: Observation With expected LOS: <2 Midnights Patient will require the following post-hospital care: None Practitioner: I am a practitioner with admitting privileges, knowledge of patient current condition, hospital course, and medical plan of care. Services: Services provided to patient in accordance with Admission requirements found in Title 42 Section 412.3 of the Code of Federal Regulations Patient History Date of Service: 04/06/21 Reason for admission: Chest pain rule out acute coronary syndrome History of Present Illness: Patient is a 36-year-old gentlemen who came into the hospital with chest discomfort. Pain was mainly in the sternal region. Patient's pain was in the anterior chest wall. Decision was made to admit the patient to the hospital for further evaluation. Patient has a history of hypertension. Patient does not have any other medical problems. Patient will be admitted and we will get an echocardiogram. Allergies No Known Allergies Allergy (Verified 03/28/18 14:29) Home Medications: lisinopriL [Prinivil*] 20 mg PO [id number] 03/28/18 Atorvastatin Calcium [Lipitor] 40 mg PO DAILY #30 tablet 04/07/21 - Past Medical/Surgical History -: Hypertension Past Surgical History: Patient denies surgical history - Family History Father Family History: Reviewed- Non-Contributory - Social History Smoking Status: Former smoker Alcohol use: No CD- Drugs: No Review of Systems 10-point ROS is otherwise unremarkable Physical Examination - Vital Signs Temperature: 97.6 F Blood Pressure: 136/78 Pulse: 76 Respirations: 18 Pulse Ox (%): 96 - Physical Exam General: Alert, In no apparent distress, Oriented x3 HEENT: Atraumatic, PERRLA, Mucous membr. moist/pink, EOMI, Sclerae nonicteric Neck: Supple, 2+ carotid pulse no bruit, No LAD, Without JVD or thyroid abnormality Respiratory: Clear to auscultation bilaterally, Normal air movement Cardiovascular: Regular rate/rhythm, Normal S1 S2, No murmurs Gastrointestinal: Normal bowel sounds, Soft and benign, Non-distended, No tenderness Musculoskeletal: No clubbing, No swelling, No tenderness Integumentary: No rashes Neurological: Normal gait, Normal speech, Normal strength at 5/5 x4 extr, Normal tone, Sensation intact, Cranial nerves 3-12 intact, Normal affect Lymphatics: No axilla or inguinal lymphadenopathy Assessment & Plan - Problems (Diagnosis) (1) Chest pain, rule out acute myocardial infarction Status: Acute (2) Hypertension Status: Acute - Plan Plan: - Serial troponins and EKG - Appreciate Cardiology consultation - Echocardiogram and stress test if cardiology is agreeable - Anti-platelet therapy, anti coagulation, beta-ke, statin, and O2 as needed - IV morphine for pain - Nitro p.r.n. Discharge Plan: Home Plan to discharge in: 24 Hours - Advance Directives Does patient have a Living Will: No Does patient have a Durable POA for Healthcare: No - Code Status/Comfort Care Code Status Assessed: Yes Code Status: Full Code Critical Care: No Time Spent Managing PTS Care (In Minutes): 45
--- NOTE | 2021-04-19 04:03 | P.DS ---
Discharge Date: 04/07/21 Disposition: ROUTINE DISCHARGE Discharge Condition: GOOD Reason for Admission: Chest pain rule out acute coronary syndrome - Problems (1) Chest pain, rule out acute myocardial infarction Status: Acute (2) Hypertension Status: Acute Brief History of Present Illness: Patient is a 36-year-old gentlemen who came into the hospital with chest discomfort. Pain was mainly in the sternal region. Patient's pain was in the anterior chest wall. Decision was made to admit the patient to the hospital for further evaluation. Patient has a history of hypertension. Patient does not have any other medical problems. Patient will be admitted and we will get an echocardiogram. Hospital Course: Patient's troponins were negative. EKG unremarkable. Echocardiogram without any abnormality. At this time, patient is stable for discharge with outpatient follow up with cardiology in 1-2 weeks. Vital Signs/Physical Exam: Temp Pulse Resp BP Pulse Ox 97.6 F 76 18 136/78 96 04/19/21 03:59 04/19/21 03:59 04/19/21 03:59 04/19/21 03:59 04/19/21 03:59 General: Alert, In no apparent distress, Oriented x3 Laboratory Data at Discharge: WBC 9.00 K/uL (4.3-10.9) 04/06/21 04:56 Hgb 15.2 g/dL (13.6-17.9) 04/06/21 04:56 Hct 44.0 % (39.6-49.0) 04/06/21 04:56 Plt Count 386 K/uL (152-406) 04/06/21 04:56 PT 11.2 SECONDS (9.5-12.5) 04/06/21 04:56 INR 0.97 04/06/21 04:56 Sodium 139 mmol/L (136-145) 04/06/21 04:56 Potassium 3.9 mmol/L (3.5-5.1) 04/06/21 04:56 BUN 19 mg/dL (7-18) H 04/06/21 04:56 Creatinine 0.94 mg/dL (0.55-1.3) 04/06/21 04:56 Glucose 133 mg/dL (74-106) H 04/06/21 04:56 Magnesium 2.1 mg/dL (1.8-2.4) 04/06/21 04:56 Total Bilirubin 0.4 mg/dL (0.2-1.0) 04/06/21 04:56 AST 29 U/L (15-37) 04/06/21 04:56 ALT 62 U/L (12-78) 04/06/21 04:56 Alkaline Phosphatase 79 U/L (45-117) 04/06/21 04:56 Troponin I < 0.02 ng/mL (0.0-0.045) 04/06/21 17:13 Triglycerides 157 mg/dL (<150) H 04/06/21 09:11 Cholesterol 210 mg/dL (<200) H 04/06/21 09:11 HDL Cholesterol 37 mg/dL (40-60) L 04/06/21 09:11 Cholesterol/HDL Ratio 5.68 04/06/21 09:11 Home Medications: lisinopriL [Prinivil*] 20 mg PO [id number] 03/28/18 Atorvastatin Calcium [Lipitor] 40 mg PO DAILY #30 tablet 04/07/21 New Medications: Atorvastatin Calcium [Lipitor] 40 mg PO DAILY #30 tablet Physician Discharge Instructions: -OK TO DC IV AND DC HOME -FOLLOW-UP WITH PCP IN 1-2 WEEKS -FOLLOW-UP WITH CARDIOLOGY IN 1-2 WEEKS -PLEASE MAKE SURE ALL DIAGNOSTIC STUDIES ARE AVAILABLE AND HAVE BEEN REVIEWED WITH PATIENT PRIOR TO DISCHARGE -RETURN TO THE ER IF symptoms worsen -CALL DR. HENDERSON AT [phone] IF ANY QUESTIONS REGARDING HOSPITAL STAY -PLEASE CALL THE FLOOR AT [phone] IF ANY MEDICATION OR NURSING QUESTIONS Diet: AHA Activity: Fall precautions Followup: Gino Domínguez MD [ACTIVE - CAN ADMIT] - NONE,NONE [Primary Care Provider] - Time spent managing pt's care (in minutes): 35
== END 2021-04-07 12:05 | disposition home or self-care (01) | DRG 313 ==
LOC: ER 04:38 → ERHOLD 08:51 → 2ND 16:57 → OBSVTOIN 04-07 08:03
PROVIDERS: ADMIT Hospitalist; ATTEND Hospitalist
DX: R07.9 Chest pain, unspecified (principal); Z68.42 Body mass index [BMI] 45.0-49.9, adult; I10 Essential (primary) hypertension; E66.9 Obesity, unspecified; Z20.822 Contact with and (suspected) exposure to COVID-19
CPT/HCPCS: 36415; 70450; 71045; 80048; 80061; 80076; 81003; 83735; 83880; 84484; 85025; 85610; 93005; 93306; 96361; 96372; 96374; 96375; 99285; G0378; J1650; J7030; U0003

== ENCOUNTER 2022-11-26 17:56 | Emergency (ER) | payer OTHER, SELFPAY ==
[2022-11-26] MEDS ORDERED: ASPIRIN 81 MG CHEWABLE TABLET ONE (19:48)
[2022-11-26 19:53] LABS: Protime INR 1.02
[2022-11-26 20:01] LABS: Absolute Lymphocytes (CBC) 2.6 K/uL (0.7-4.9); Lymphocytes % 22.3 % (15.3-44.8); MCV 90.7 fL (80-100); MPV 7.8 fL (7.6-11.3); RBC Red Blood Cell Count 5.52 M/uL (4.33-5.43)
[2022-11-26 20:04] LABS: Albumin 3.6 g/dL (3.4-5.0); Bilirubin Direct 0.1 mg/dL (0-0.2); Bilirubin Indirect, Calculated 0.3 mg/dL (0.2-0.8); Bilirubin Total 0.4 mg/dL (0.2-1.0); Potassium 4.3 mEq/L (3.5-5.1); Troponin High Sensitivity 12.2 pg/mL (<58.9)
--- NOTE | 2022-11-26 21:33 | RAD REPORT ---
[facility] CLINICAL HISTORY: CHEST PAIN COMPARISON: Chest Single View dated 04/06/2021; Chest Pa And Lat (2 Views) dated 02/22/2021 TECHNIQUE: Portable AP view of the chest. FINDINGS: Decreased inspiratory effort, and poor penetration limit evaluation. The lungs are clear. No pneumothorax or effusion. The cardiomediastinal contours are unchanged, again with crowding of th e central pulmonary vascular markings. IMPRESSION: No acute cardiopulmonary process, as above.
--- NOTE | 2022-11-27 01:40 | EDPHYS ---
Physician Documentation [facility] Name: Qamar Weiner Age: 37 yrs Sex: Male : 1985 Arrival Date: 11/26/2022 Time: 17:56 Bed 19 Private MD: ED Physician Danilo Navarrete HPI: 11/26 19:02 This 37 yrs old Male presents to ER via Ambulatory with complaints of Chest sp4 Pain, High Blood Pressure. 20:04 Patient is 37-year-old male who is suffering from morbid obesity, hypertension, sp4 diabetes, presents with acute onset of intermittent midsternal chest pressure starting at 5:30 PM today at rest. Patient states he is on losartan 75 mg a day. Phentermine 37.5 mg a day for weight loss. Atorvastatin 40 mg for hyperlipidemia. Fluoxetine and metformin. Patient reports that he had a stress testing years ago which was negative. Patient has history of cardiomegaly. . Historical: - Allergies: 18:56 No Known Allergies; nj1 - Home Meds: 18:56 losartan oral [Active]; atorvastatin oral [Active]; Metformin Oral [Active]; nj1 phentermine oral [Active]; Fluoxetine Oral [Active]; - PMHx: 18:56 Heart Murmur; Hypertensive disorder; Diabetes mellitus; Anxiety; Hypercholesterolemia; nj1 - PSHx: 18:56 None; nj1 - Immunization history:: Client reports having NOT received the Covid vaccine. - Social history:: Smoking status: Patient reports use of chewing tobacco. - Family history:: not pertinent. ROS: 20:04 Constitutional: Negative for fever, chills, and weight loss, Eyes: Negative for injury, sp4 pain, redness, and discharge, ENT: Negative for injury, pain, and discharge, Neck: Negative for injury, pain, and swelling, Cardiovascular: Negative for palpitations, and edema, positive for midsternal chest pressure. Respiratory: Negative for shortness of breath, cough, wheezing, and pleuritic chest pain, Abdomen/GI: Negative for abdominal pain, nausea, vomiting, diarrhea, and constipation, Back: Negative for injury and pain, : Negative for injury, bleeding, discharge, and swelling, MS/Extremity: Negative for injury and deformity, Skin: Negative for injury, rash, and discoloration, Neuro: Negative for headache, weakness, numbness, tingling, and seizure, Psych: Negative for depression, anxiety, Allergy/Immunology: Negative for hives, rash, and allergies Endocrine: Negative for neck swelling, polydipsia, polyuria, polyphagia, and weight changes Hematologic/Lymphatic: Negative for swollen nodes, abnormal bleeding, and unusual bruising Exam: 20:04 Constitutional: This is a well developed, well nourished patient who is awake, alert, sp4 and in no acute distress. Head/Face: Normocephalic, atraumatic. Eyes: Pupils equal round and reactive to light, extra-ocular motions intact. Lids and lashes normal. Conjunctiva and sclera are not injected. Cornea within normal limits. Periorbital areas with no swelling, redness, or edema. ENT: Nares patent. No nasal discharge, no septal abnormalities noted. Tympanic membranes are normal and external auditory canals are clear. Oropharynx with no redness, swelling, or masses, exudates, or evidence of obstruction, uvula midline. Mucous membranes moist. Neck: Trachea midline, no thyromegaly or masses palpated, and no cervical lymphadenopathy. Supple, full range of motion without nuchal rigidity, or vertebral point tenderness. No Meningismus. Chest/axilla: Normal chest wall appearance and motion. Nontender with no deformity. No lesions are appreciated. Cardiovascular: Regular rate and rhythm with a normal S1 and S2. No gallops, murmurs, or rubs. Normal PMI, no JVD. No pulse deficits. Respiratory: Lungs have equal breath sounds bilaterally, clear to auscultation and percussion. No rales, rhonchi or wheezes noted. No increased work of breathing, no retractions or nasal flaring. Abdomen/GI: Soft, non-tender, with normal bowel sounds. No distension or tympany. No guarding or rebound. No evidence of tenderness throughout. Back: No spinal tenderness. No costovertebral tenderness. Skin: Warm, dry with normal turgor. Normal color with no rashes, no lesions, and no evidence of cellulitis. MS/ Extremity: Pulses equal, no cyanosis. Neurovascular intact. Full, normal range of motion. Neuro: Awake and alert, GCS 15, oriented to person, place, time, and situation. Cranial nerves II-XII grossly intact. Motor strength 5/5 in all extremities. Sensory grossly intact. Psych: Awake, alert, with orientation to person, place and time. Behavior, mood, and affect are within normal limits 20:04 ECG was reviewed by the Attending Physician. Sinus rhythm at the rate of 95. EKG time sp4 1850. There is no ectopy. Left ventricular hypertrophy, no ST elevation or depression 11/27 01:33 A repeat EKG reveals left ventricular hypertrophy, no changes from the initial EKG, no sp4 ST elevation or depression. EKG time 0 126 11/27/2022. There is no ectopy, overall is no changes and evaluation is not indicative for NSTEMI or unstable angina. Patient is stable for discharge home with referral to Dr. Domínguez with cardiology. Vital Signs: 11/26 18:53 BP 132 / 101; Pulse 95; Resp 19; Temp 98.3(O); Pulse Ox 100% ; Weight 160.57 kg; Height nj1 6 ft. 0 in. ; Pain 07/12; 20:54 BP 140 / 69; Pulse 86; Resp 16; Pulse Ox 98% on R/A; jb4 21:45 BP 143 / 91; Pulse 86; Resp 16; Pulse Ox 98% on R/A; jb4 22:45 BP 143 / 74; Pulse 86; Resp 16; Pulse Ox 96% on R/A; jb4 23:45 BP 119 / 67; Pulse 87; Resp 16; Pulse Ox 94% on R/A; jb4 11/27 00:45 BP 118 / 64; Pulse 88; Resp 16; Pulse Ox 95% on R/A; jb4 01:30 BP 125 / 74; Pulse 88; Resp 16; Pulse Ox 98% on R/A; jb4 11/26 18:53 Body Mass Index 48.01 (160.57 kg, 182.88 cm) il1 11/26 18:53 Pain Scale: Adult nj1 MDM: 11/26 19:02 Patient medically screened. 4 11/27 01:33 Differential diagnosis: abnormal EKG, acute myocardial infarction, acute pericarditis, sp4 anxiety, coronary artery disease chest wall pain, congestive heart failure cholecystitis. HEART Score: History: Moderately Suspicious (1), ECG: Non specific repolarization disturbance / LBTB / PM (1), Age: < or = 45 years (0), Risk Factors: > or = 3 Risk factors for atherosclerotic disease (2), Troponin: < or = 1 x Normal Limit (0), Total Score = 4. Data reviewed: vital signs, nurses notes, old medical records, lab test result(s), EKG, radiologic studies, plain films. ED course: Repeat troponin is negative. Repeat EKG no changes. Patient is stable for discharge home with referral to cardiology. . 11/26 19:02 Order name: Basic Metabolic Panel; Complete Time: 21:37 [facility] 11/26 19:02 Order name: CBC with Diff; Complete Time: 20:04 [facility] 11/26 19:02 Order name: LFT's; Complete Time: 21:37 [facility] 11/26 19:02 Order name: NT PRO-BNP; Complete Time: 21:37 [facility] 11/26 19:02 Order name: PT-INR; Complete Time: 20:04 [facility] 11/26 19:02 Order name: Troponin HS; Complete Time: 21:37 [facility] 11/26 23:55 Order name: Troponin High Sensitivity; Complete Time: 01:31 [facility] 11/26 19:02 Order name: XRAY Chest (1 view); Complete Time: 21:37 [facility] 11/26 19:02 Order name: EKG; Complete Time: 19:03 [facility] 11/26 23:55 Order name: EKG; Complete Time: 23:55 [facility] 11/26 19:02 Order name: Cardiac monitoring; Complete Time: 19:38 [facility] 11/26 19:02 Order name: EKG - Nurse/Tech; Complete Time: 19:38 [facility] 11/26 19:02 Order name: IV Saline Lock; Complete Time: 19:38 [facility] 11/26 19:02 Order name: Labs collected and sent; Complete Time: 19:38 [facility] 11/26 19:02 Order name: O2 Per Protocol; Complete Time: 19:38 [facility] 11/26 19:02 Order name: O2 Sat Monitoring; Complete Time: 19:38 EC/27 20:04 Rate is 95 beats/min. Rhythm is regular, Sinus Rhythm. NM interval is normal. QRS sp4 interval is prolonged. T waves are Normal. No ST changes noted. Clinical impression: No evidence of ischemia. Interpreted by me. Administered Medications: 19:46 Drug: Aspirin PO Chewable Tablet 324 mg Route: PO; jb4 Disposition Summary: 11/27/22 01:39 Discharge Ordered Location: Home sp4 Problem: new sp4 Symptoms: have improved sp4 Condition: Stable sp4 Diagnosis - Chest pain, unspecified sp4 - Atypical chest pain sp4 Followup: sp4 - With: Gino Domínguez MD - When: 7 - 10 days - Reason: Recheck today's complaints Discharge Instructions: - Discharge Summary Sheet sp4 - Nonspecific Chest Pain, Adult, [id number] sp4 Signatures: Dispatcher [employer] Sajan Sosa, RN RN jb4 Danilo Navarrete MD MD sp4 Therese Henderson RN RN nj1
--- NOTE | 2022-11-27 01:40 | ER ---
Nurse's Notes [facility] Name: Qamar Weiner Age: 37 yrs Sex: Male : 1985 Arrival Date: 11/26/2022 Time: 17:56 Bed 19 Private MD: Diagnosis: Chest pain, unspecified;Atypical chest pain Presentation: 11/26 18:53 Chief complaint: Patient states: Chest pain, onset about 1 hour ago while sitting nj1 watching tv. [place] a chill that made him lightheaded, resolved, and then the pressure on chest started. Concerned about high blood pressure, was at PCP and blood pressure was high but not as much as today, dosage for high blood pressure medicine increased, pt has not taken new dosage yet. Coronavirus screen: Vaccine status: Patient reports being unvaccinated. Ebola Screen: Patient denies travel to an Ebola-affected area in the 21 days before illness onset. Initial Sepsis Screen: Does the patient meet any 2 criteria? HR > 90 bpm. No. Patient's initial sepsis screen is negative. Does the patient have a suspected source of infection? No. Patient's initial sepsis screen is negative. Risk Assessment: Do you want to hurt yourself or someone else? Patient reports no desire to harm self or others. Onset of symptoms was November 26, 2022 at 17:45. 18:53 Method Of Arrival: Ambulatory [facility] 18:53 Acuity: STACY 3 nj1 Historical: - Allergies: 18:56 No Known Allergies; nj1 - Home Meds: 18:56 losartan oral [Active]; atorvastatin oral [Active]; Metformin Oral [Active]; nj1 phentermine oral [Active]; Fluoxetine Oral [Active]; - PMHx: 18:56 Heart Murmur; Hypertensive disorder; Diabetes mellitus; Anxiety; Hypercholesterolemia; nj1 - PSHx: 18:56 None; nj1 - Immunization history:: Client reports having NOT received the Covid vaccine. - Social history:: Smoking status: Patient reports use of chewing tobacco. - Family history:: not pertinent. Screenin/28 00:45 [facility] ED Fall Risk Assessment (Adult) History of falling in the last 3 months, jb4 including since admission No falls in past 3 months (0 pts) Confusion or Disorientation No (0 pts) Score/Fall Risk Level 0 - 2 = Low Risk. Abuse screen: Denies threats or abuse. Nutritional screening: No deficits noted. Tuberculosis screening: No symptoms or risk factors identified. Assessment: 11/26 19:15 General: Appears in no apparent distress. comfortable, Behavior is calm, cooperative, jb4 appropriate for age. Pain: Complains of pain in chest Pain does not radiate. Pain began 3 hours ago. Neuro: Level of Consciousness is awake, alert, obeys commands, Oriented to person, place, time, situation. Cardiovascular: Patient's skin is warm and dry. Respiratory: Airway is patent Respiratory effort is even, unlabored, Respiratory pattern is regular, symmetrical. GI: No signs and/or symptoms were reported involving the gastrointestinal system. : No signs and/or symptoms were reported regarding the genitourinary system. EENT: No signs and/or symptoms were reported regarding the EENT system. Derm: Skin is intact, Skin is pink, warm \T\ dry. Musculoskeletal: Circulation, motion, and sensation intact. Range of motion: intact in all extremities. 20:30 Reassessment: Patient appears in no apparent distress at this time. Patient and/or jb4 family updated on plan of care and expected duration. Pain level reassessed. Patient is alert, oriented x 3, equal unlabored respirations, skin warm/dry/pink. 21:54 Reassessment: Patient appears in no apparent distress at this time. Patient and/or jb4 family updated on plan of care and expected duration. Pain level reassessed. Patient is alert, oriented x 3, equal unlabored respirations, skin warm/dry/pink. 23:00 Reassessment: Patient appears in no apparent distress at this time. Patient and/or jb4 family updated on plan of care and expected duration. Pain level reassessed. Patient is alert, oriented x 3, equal unlabored respirations, skin warm/dry/pink. 11/27 00:02 Reassessment: Patient appears in no apparent distress at this time. Patient and/or jb4 family updated on plan of care and expected duration. Pain level reassessed. Patient is alert, oriented x 3, equal unlabored respirations, skin warm/dry/pink. 01:00 Reassessment: Patient appears in no apparent distress at this time. Patient and/or jb4 family updated on plan of care and expected duration. Pain level reassessed. Patient is alert, oriented x 3, equal unlabored respirations, skin warm/dry/pink. 01:56 Reassessment: Patient appears in no apparent distress at this time. Patient and/or jb4 family updated on plan of care and expected duration. Pain level reassessed. Patient is alert, oriented x 3, equal unlabored respirations, skin warm/dry/pink. Vital Signs: 11/26 18:53 BP 132 / 101; Pulse 95; Resp 19; Temp 98.3(O); Pulse Ox 100% ; Weight 160.57 kg; Height nj1 6 ft. 0 in. ; Pain 07/12; 20:54 BP 140 / 69; Pulse 86; Resp 16; Pulse Ox 98% on R/A; jb4 21:45 BP 143 / 91; Pulse 86; Resp 16; Pulse Ox 98% on R/A; jb4 22:45 BP 143 / 74; Pulse 86; Resp 16; Pulse Ox 96% on R/A; jb4 23:45 BP 119 / 67; Pulse 87; Resp 16; Pulse Ox 94% on R/A; jb4 11/27 00:45 BP 118 / 64; Pulse 88; Resp 16; Pulse Ox 95% on R/A; jb4 01:30 BP 125 / 74; Pulse 88; Resp 16; Pulse Ox 98% on R/A; jb4 11/26 18:53 Body Mass Index 48.01 (160.57 kg, 182.88 cm) [facility] 11/26 18:53 Pain Scale: Adult [facility] ED Course: 11/26 17:57 Patient arrived in ED. am2 18:56 Triage completed. nj1 18:59 Arm band placed on left wrist. nj1 19:01 Danilo Navarrete MD is Attending Physician. sp4 19:38 Sajan Patel, RN is Primary Nurse. jb4 19:38 Basic Metabolic Panel Sent. jb4 19:38 CBC with Diff Sent. jb4 19:38 LFT's Sent. jb4 19:38 PT-INR Sent. jb4 19:38 Troponin HS Sent. jb4 19:39 NT PRO-BNP Sent. jb4 21:20 XRAY Chest (1 view) In Process Unspecified. EDMS 11/27 00:45 Patient has correct armband on for positive identification. Bed in low position. Call jb4 light in reach. Side rails up X 1. Client placed on continuous cardiac and pulse oximetry monitoring. NIBP monitoring applied. case monitor on. 01:39 Gino Domínguez MD is Referral Physician. sp4 01:58 No provider procedures requiring assistance completed. IV discontinued, intact, jb4 bleeding controlled, No redness/swelling at site. Pressure dressing applied. Patient maintains SpO2 saturation greater than 95% on room air. Administered Medications: 11/26 19:46 Drug: Aspirin PO Chewable Tablet 324 mg Route: PO; jb4 Medication: 11/27 00:45 VIS not applicable for this client. jb4 Outcome: :39 Discharge ordered by . sp4 01:58 Discharged to home ambulatory. jb4 01:58 Condition: stable 01:58 Discharge instructions given to patient, Instructed on discharge instructions, follow up and referral plans. Demonstrated understanding of instructions, follow-up care. 01:58 Patient left the ED. jb4 Signatures: Dispatcher [employer] EDMS Sajan Patel, RN RN jb4 Sandra Wilson am2 Danilo Navarrete MD MD sp4 Therese Henderson RN RN nj1
[2022-11-27 02:52] VITALS: TEMP 98.3
[2022-11-27 03:16] VITALS: BP 125/74; O2SAT 98
--- NOTE | 2022-11-27 07:25 | EKG ---
Test Date: 2022-11-27 Test Time: 01:26:58 Clinical Research Nurse: PRADEEP MEASUREMENT RESULTS: Intervals: Rate: 81 TN: 136 QRSD: 98 QT: 376 QTc: 436 Mcloud: P: 28 TN: 136 QRS: -81 T: 61 INTERPRETIVE STATEMENTS: Normal sinus rhythm Left anterior fascicular block Nonspecific T wave abnormality Abnormal ECG Compared to ECG 04/06/2021 04:58:03 T-wave abnormality now present Left ventricular hypertrophy no longer present Electronically Signed On 11-27-22 07:25:04 CDT by Gino Doímnguez
--- NOTE | 2022-11-27 07:27 | EKG ---
Test Date: 2022-11-26 Test Time: 18:51:36 Product Finisher: BONY MEASUREMENT RESULTS: Intervals: Rate: 95 TX: 136 QRSD: 100 QT: 350 QTc: 439 [place]: P: 30 TX: 136 QRS: -75 T: 73 INTERPRETIVE STATEMENTS: Normal sinus rhythm Left anterior fascicular block Left ventricular hypertrophy with repolarization abnormality Abnormal ECG Compared to ECG 04/06/2021 04:58:03 Early repolarization now present Electronically Signed On 11-27-22 07:25:12 CDT by Gino Domínguez
== END 2022-11-27 01:58 | disposition home or self-care (01) ==
LOC: ER 17:56
DX: R07.89 Other chest pain (principal); I10 Essential (primary) hypertension; E11.9 Type 2 diabetes mellitus without complications; F41.9 Anxiety disorder, unspecified; F17.220 Nicotine dependence, chewing tobacco, uncomplicated
CPT/HCPCS: 36415; 71045; 80048; 80076; 83880; 84484; 85025; 85610; 93005; 99285